=== PATIENT | female | born 1985 | race Two or more races ===

== ENCOUNTER 2021-04-27 11:15 | Inpatient (IN) | payer OTHER ==
[~2021-04-27] VITALS: Ht 152.4 cm; Wt 73.5 kg
[2021-04-27] MEDS ORDERED: SYNTHROID100 MCG PO (13:41)
[2021-04-27] MEDS ORDERED: SYNTHROID88 MCG (13:42)
== END 2021-05-03 10:34 | disposition home or self-care (01) | DRG 737 ==
LOC: O/R 04-29 07:05 → OB/GYN 04-29 07:05
PROVIDERS: Surgery; ADMIT Obstetrics & Gynecology Gynecologic Oncology; ATTEND Obstetrics & Gynecology Gynecologic Oncology
PROC: 0D5W0ZZ Destruction of Peritoneum, Open Approach (ICD-10-PCS; 2021-04-29)
PROC: 0UT20ZZ Resection of Bilateral Ovaries, Open Approach (ICD-10-PCS; 2021-04-29)
PROC: 0UT70ZZ Resection of Bilateral Fallopian Tubes, Open Approach (ICD-10-PCS; 2021-04-29)
PROC: 07BC0ZZ Excision of Pelvis Lymphatic, Open Approach (ICD-10-PCS; 2021-04-29)
PROC: 0DTP0ZZ Resection of Rectum, Open Approach (ICD-10-PCS; 2021-04-29)
PROC: 30233N1 Transfusion of Nonautologous Red Blood Cells into Peripheral Vein, Percutaneous Approach (ICD-10-PCS; 2021-04-29)
PROC: 0UT90ZZ Resection of Uterus, Open Approach (ICD-10-PCS; principal; 2021-04-29 17:45)
PROC: 0DTN0ZZ Resection of Sigmoid Colon, Open Approach (ICD-10-PCS; 2021-04-29 17:45)
DX: C56.2 Malignant neoplasm of left ovary (principal); C18.7 Malignant neoplasm of sigmoid colon; C78.6 Secondary malignant neoplasm of retroperitoneum and peritoneum; R18.0 Malignant ascites; D64.9 Anemia, unspecified; Z20.822 Contact with and (suspected) exposure to COVID-19

== ENCOUNTER 2021-06-24 05:46 | Day surgery (SDC) | payer OTHER ==
[~2021-06-24 05:46] MED LIST: SYNTHROID100 MCG PO; SYNTHROID88 MCG
[2021-06-24] MEDS ORDERED: ULTRACET PO (19:07)
[2021-06-24] MEDS ORDERED: DICLOFENAC SODI75 MG PO (19:07)
== END 2021-06-24 21:30 | disposition home or self-care (01) ==
LOC: CIR.AMB 05:46
PROVIDERS: ATTEND Surgery
DX: C18.7 Malignant neoplasm of sigmoid colon (principal); Z20.822 Contact with and (suspected) exposure to COVID-19
CPT/HCPCS: 36561; C1751

== ENCOUNTER 2024-06-19 06:16 | Inpatient (IN) | payer OTHER ==
[~2024-06-19] VITALS: Ht 152.4 cm; Wt 104.3 kg
[~2024-06-19 06:16] MED LIST changes: +DICLOFENAC SODI75 MG PO; +ULTRACET PO
[2024-06-19] MEDS ORDERED: NORVASC5 MG PO (06:31)
[2024-06-19] MEDS ORDERED: COZAAR25 MG PO (06:31)
[2024-06-19] MEDS ORDERED: MEPERIDINE HCL/PF 50 MG/ML VIAL IM STA (06:56)
[2024-06-19] MEDS ORDERED: RINGERS SOLUTION,LACTATED 1,000 ML IV ONE (07:00)
[2024-06-19] MEDS ORDERED: ONDANSETRON HCL 2 MG/ML VIAL IV PRN (07:30)
[2024-06-19] MEDS ORDERED: MORPHINE SULFATE 4 MG/ML CARTRIDGE IV PRN (07:30)
[2024-06-19 07:38] LABS: HEMATOCRIT 29.7 % (36.0-45.00); HEMOGLOBIN 10.5 g/dL (12.0-15.00); MEAN CELL VOLUME 95.5 fL (80.00-100.00); MEAN CORPUSCULAR HEMOGLOBIN 33.9 pg (27.00-32.0); MEAN CORPUSCULAR HGB CONC 35.4 g/dl (32.0-36.0); PLATELET COUNT 193 K/uL (150-450); RED BLOOD COUNT 3.11 M/uL (4.00-6.00); RED CELL DISTRIBUTION WIDTH 16.8 % (11.5-14.5)
[2024-06-19 07:48] VITALS: BP 137/91; O2SAT 100
[2024-06-19 08:03] LABS: INR 1.05; PARTIAL THROMBOPLASTIN TIME 29.2 SECONDS (22.0-34.0)
[2024-06-19 08:14] LABS: ALBUMIN 3.3 gm/dL (3.4-5.0); BILIRUBIN TOTAL 0.44 mg/dL (0.3-1.2); CALCIUM 9.6 mg/dL (8.5-10.1); CREATININE SERUM 0.71 mg/dL (0.55-1.02); GFR 92.13; GLOBULINA 4.3 G/DL (2.4-3.5); POTASSIUM 3.54 mEq/L (3.5-5.1); TOTAL PROTEIN 7.6 gm/dL (6.4-8.2)
[2024-06-19 08:46] LABS: PH,URINE 6.5 (5.0-8.0); URINE APPEARANCE Clear; URINE BILIRRUBIN Negative (NEGATIVE); URINE BLOOD Negative; URINE COLOR Yellow; URINE GLUCOSE Negative (NEGATIVE); URINE KETONE 15 (NEGATIVE); URINE LEUKOCYTE Negative; URINE NITRATE Negative; URINE PROTEIN Negative (NEGATIVE); URINE UROBILINOGEN 0.2 E.U./dl
[2024-06-19 08:50] LABS: URINE BACTERIA 283.4 uL (0.0-1933); URINE EPITHELIAL CELLS 30.7 uL (0.0-38.8); URINE WBC 29.6 uL (0.0-23.2)
[2024-06-19] MEDS ORDERED: LEVOTHYROXINE SODIUM 100 MCG TABLET PO SCH (09:00)
[2024-06-19] MEDS ORDERED: FAMOTIDINE/PF 20 MG/2 ML VIAL IV SCH (09:00)
[2024-06-19] MEDS ORDERED: ENOXAPARIN SODIUM 40 MG/0.4 ML SYRINGE SUBCUTANEO SCH (09:00)
[2024-06-19 09:36] LABS: URINE CAST 0.45 uL (0.0-1.40)
[2024-06-19 15:18] VITALS: BP 110/95; O2SAT 100
[2024-06-19 23:24] VITALS: BP 136/86; O2SAT 97
[2024-06-20] MEDS ORDERED: levoFLOXacin IN DEXTROSE 5 % 5 MG/ML PIGGYBAG IV SCH (05:45)
[2024-06-20] MEDS ORDERED: METRONIDAZOLE/SODIUM CHLORIDE 500 MG/100 ML PIGGYBACK IV SCH ×2 (05:45→17:00)
[2024-06-20] MEDS ORDERED: LEVOTHYROXINE SODIUM 100 MCG TABLET PO SCH (06:00)
[2024-06-20 08:00] VITALS: BP 138/88; O2SAT 100
[2024-06-20 12:26] VITALS: BP 142/88; O2SAT 98
[2024-06-20] MEDS ORDERED: DEXTROSE 50 % IN WATER 0.5 G/ML DISP.SYRIN IV PRN (15:15)
[2024-06-20] MEDS ORDERED: MORPHINE SULFATE 4 MG/ML CARTRIDGE IV PRN (15:15)
[2024-06-20] MEDS ORDERED: OxyCODONE HCL 5 MG TABLET (ROXICODONE) PO PRN (15:15)
[2024-06-20] MEDS ORDERED: 0.9 % SODIUM CHLORIDE 1,000 ML IV SCH (15:15)
[2024-06-20] MEDS ORDERED: ONDANSETRON HCL 2 MG/ML VIAL IV PRN (15:15)
[2024-06-20] MEDS ORDERED: BUPIVACAINE HCL 30 ML VIAL IJ ONE (15:45)
[2024-06-20] MEDS ORDERED: LIDOCAINE HCL 1%/EPINEPHRINE 20ML VIAL IJ ONE (15:45)
[2024-06-20] MEDS ORDERED: CEFTRIAXONE SODIUM 2,000 MG VIAL IV ONE (15:45)
[2024-06-20] MEDS ORDERED: METRONIDAZOLE/SODIUM CHLORIDE 500 MG/100 ML PIGGYBACK IV ONE (15:45)
[2024-06-20] MEDS ORDERED: HYOSCYAMINE SULFATE 0.125 MG TAB.SUBL SL SCH (17:00)
[2024-06-20] MEDS ORDERED: GABAPENTIN 300 MG CAPSULE PO SCH (17:00)
[2024-06-20] MEDS ORDERED: SUGAMMADEX SODIUM 200 MG/2 ML VIAL IV ONE (17:00)
[2024-06-20] MEDS ORDERED: POLYETHYLENE GLYCOL 3350 17 GM BLIST.PACK PO SCH (17:00)
[2024-06-20 19:29] LABS: HEMATOCRIT 30.8 % (36.0-45.00); HEMOGLOBIN 10.2 g/dL (12.0-15.00); MEAN CELL VOLUME 98.7 fL (80.00-100.00); MEAN CORPUSCULAR HEMOGLOBIN 32.8 pg (27.00-32.0); MEAN CORPUSCULAR HGB CONC 33.3 g/dl (32.0-36.0); PLATELET COUNT 181 K/uL (150-450); RED BLOOD COUNT 3.12 M/uL (4.00-6.00); RED CELL DISTRIBUTION WIDTH 16.6 % (11.5-14.5)
[2024-06-20 19:46] LABS: ALBUMIN 2.9 gm/dL (3.4-5.0); CALCIUM 8.8 mg/dL (8.5-10.1); CREATININE SERUM 0.94 mg/dL (0.55-1.02); GFR 66.64; MAGNESIUM 2.1 mg/dL (1.8-2.4); PHOSPHOROUS 4.5 mg/dL (2.5-4.9); POTASSIUM 3.1 mEq/L (3.5-5.1)
[2024-06-20] MEDS ORDERED: ACETAMINOPHEN 500 MG GEL..CAP PO SCH (20:00)
[2024-06-20 20:30] VITALS: BP 150/87; O2SAT 96
[2024-06-20] MEDS ORDERED: FAMOTIDINE/PF 20 MG/2 ML VIAL IV PUSH SCH (21:00)
[2024-06-21 00:06] VITALS: BP 147/91; O2SAT 100
[2024-06-21 08:00] VITALS: BP 138/81
[2024-06-21 08:46] LABS: HEMATOCRIT 26.6 % (36.0-45.00); MEAN CELL VOLUME 97.9 fL (80.00-100.00); MEAN CORPUSCULAR HGB CONC 33.9 g/dl (32.0-36.0); PLATELET COUNT 150 K/uL (150-450); RED BLOOD COUNT 2.72 M/uL (4.00-6.00); RED CELL DISTRIBUTION WIDTH 16.7 % (11.5-14.5)
[2024-06-21 09:36] LABS: ALBUMIN 2.4 gm/dL (3.4-5.0); CREATININE SERUM 0.98 mg/dL (0.55-1.02); GFR 63.51; MAGNESIUM 1.9 mg/dL (1.8-2.4); PHOSPHOROUS 4.7 mg/dL (2.5-4.9); POTASSIUM 3.38 mEq/L (3.5-5.1)
[2024-06-21 16:34] VITALS: BP 146/89; O2SAT 100
[2024-06-21] MEDS ORDERED: ENOXAPARIN SODIUM 40 MG/0.4 ML SYRINGE SUBCUTANEO SCH (17:00)
[2024-06-22 00:33] VITALS: BP 142/87; O2SAT 99
[2024-06-22] MEDS ORDERED: ENOXAPARIN SODIUM 40 MG/0.4 ML SYRINGE SUBCUTANEO SCH (09:00)
[2024-06-22 09:07] VITALS: BP 146/95; O2SAT 100
[2024-06-22 15:54] VITALS: BP 153/90; O2SAT 98
[2024-06-22] MEDS ORDERED: POTASSIUM CHLORIDE IN WATER 40 MEQ/100 ML PIGGYBAG IV ONE (19:45)
[2024-06-23 01:13] VITALS: BP 143/92; O2SAT 100
[2024-06-23 08:08] LABS: ALBUMIN 1.9 gm/dL (3.4-5.0); CALCIUM 7.8 mg/dL (8.5-10.1); CREATININE SERUM 0.9 mg/dL (0.55-1.02); GFR 70.07; MAGNESIUM 1.7 mg/dL (1.8-2.4); PHOSPHOROUS 2.8 mg/dL (2.5-4.9)
[2024-06-23 09:03] LABS: POTASSIUM 2.54 mEq/L (3.5-5.1)
[2024-06-23 09:15] VITALS: BP 129/79; O2SAT 100
[2024-06-23] MEDS ORDERED: DEXTROSE 5 %-0.45 % SOD CHLORD 1,000 ML IV SCH (10:00)
[2024-06-23] MEDS ORDERED: TAMSULOSIN HCL 0.4 MG CAP PO STA (11:16)
[2024-06-23] MEDS ORDERED: POTASSIUM CHLORIDE 10 MEQ CAPSULE PO SCH (13:00)
[2024-06-24 01:32] VITALS: BP 143/83; O2SAT 100
[2024-06-24 05:46] LABS: ALBUMIN 1.9 gm/dL (3.4-5.0); CALCIUM 7.6 mg/dL (8.5-10.1); CREATININE SERUM 1.3 mg/dL (0.55-1.02); GFR 45.84; PHOSPHOROUS 2.7 mg/dL (2.5-4.9)
[2024-06-24 06:12] LABS: POTASSIUM 2.72 mEq/L (3.5-5.1)
[2024-06-24 06:13] LABS: MAGNESIUM 1.3 mg/dL (1.8-2.4)
[2024-06-24 08:00] VITALS: BP 166/91; O2SAT 96
[2024-06-24] MEDS ORDERED: TAMSULOSIN HCL 0.4 MG CAP PO SCH (09:00)
[2024-06-24] MEDS ORDERED: MAGNESIUM SULFATE IN WATER 4 GM/100 ML PIGGYBACK IV NR (09:18)
[2024-06-24 12:00] VITALS: BP 172/99; O2SAT 100
[2024-06-24] MEDS ORDERED: LOSARTAN POTASSIUM 50 MG TABLET PO STA (13:11)
[2024-06-24 16:00] VITALS: BP 154/88; O2SAT 99
[2024-06-24] MEDS ORDERED: AMLODIPINE BESYLATE 5 MG TABLET PO SCH (17:00)
[2024-06-24] MEDS ORDERED: ENOXAPARIN SODIUM 60 MG/0.6 ML SYRINGE SUBCUTANEO SCH (21:00)
[2024-06-25 00:15] VITALS: BP 135/80; O2SAT 100
[2024-06-25 08:00] VITALS: BP 131/86; O2SAT 97
[2024-06-25] MEDS ORDERED: LOSARTAN POTASSIUM 50 MG TABLET PO SCH (09:00)
[2024-06-25 13:35] LABS: CALCIUM 8.1 mg/dL (8.5-10.1); CREATININE SERUM 1.78 mg/dL (0.55-1.02); GFR 31.9; MAGNESIUM 2.7 mg/dL (1.8-2.4); POTASSIUM 3.4 mEq/L (3.5-5.1)
[2024-06-25 16:33] VITALS: BP 136/86; O2SAT 99
[2024-06-25] MEDS ORDERED: POTASSIUM CHLORIDE IN WATER 100 ML IV ONE (22:15)
[2024-06-26] VITALS: BP 145/85; O2SAT 100
[2024-06-26] MEDS ORDERED: POTASSIUM CHLORIDE IN WATER 40 MEQ/100 ML PIGGYBAG IV ONE (05:13)
[2024-06-26 08:00] VITALS: BP 149/87; O2SAT 100
[2024-06-26 08:25] LABS: CALCIUM 7.9 mg/dL (8.5-10.1); CREATININE SERUM 2.92 mg/dL (0.55-1.02); GFR 18.02; MAGNESIUM 2.5 mg/dL (1.8-2.4); PHOSPHOROUS 3.4 mg/dL (2.5-4.9); POTASSIUM 3.63 mEq/L (3.5-5.1)
[2024-06-26 16:19] VITALS: BP 128/80; O2SAT 99
[2024-06-27 00:36] VITALS: BP 140/78; O2SAT 98
[2024-06-27 08:00] VITALS: BP 136/87; O2SAT 100
[2024-06-27 16:00] VITALS: BP 122/78
[2024-06-27] MEDS ORDERED: CHLORHEXIDINE GLUCONATE 120 ML BOTTLE TOP ONE ×2 (20:02→23:45)
[2024-06-27] MEDS ORDERED: IOVERSOL 320 MG/ML - 50 ML VIAL IV ONE (20:24)
[2024-06-27] MEDS ORDERED: CEFAZOLIN SODIUM 1,000 MG VIAL ONE (20:34)
[2024-06-27] MEDS ORDERED: AMLODIPINE BESYLATE 5 MG TABLET PO SCH (21:00)
[2024-06-27 23:02] VITALS: BP 140/80; O2SAT 100
[2024-06-27] MEDS ORDERED: MORPHINE SULFATE 4 MG/ML CARTRIDGE IV PRN (23:15)
[2024-06-27] MEDS ORDERED: IOVERSOL 320 MG/ML - 100 ML VIAL IV ONE (23:45)
[2024-06-27] MEDS ORDERED: CEFAZOLIN SODIUM 1,000 MG VIAL IV ONE (23:45)
[2024-06-28 00:56] VITALS: BP 139/72; O2SAT 100
[2024-06-28 08:00] VITALS: BP 142/95; O2SAT 100
[2024-06-28] MEDS ORDERED: LOSARTAN POTASSIUM 50 MG TABLET PO SCH (09:00)
[2024-06-28 09:05] LABS: HEMATOCRIT 25.6 % (36.0-45.00); MEAN CELL VOLUME 96.2 fL (80.00-100.00); MEAN CORPUSCULAR HGB CONC 33.4 g/dl (32.0-36.0); PLATELET COUNT 183 K/uL (150-450); RED BLOOD COUNT 2.66 M/uL (4.00-6.00); RED CELL DISTRIBUTION WIDTH 16.1 % (11.5-14.5)
[2024-06-28 09:06] LABS: HEMOGLOBIN 8.5 g/dL (12.0-15.00); MEAN CORPUSCULAR HEMOGLOBIN 31.9 pg (27.00-32.0)
[2024-06-28 09:54] LABS: CALCIUM 8.4 mg/dL (8.5-10.1); GFR 10.4; MAGNESIUM 2.4 mg/dL (1.8-2.4); PHOSPHOROUS 4.7 mg/dL (2.5-4.9); POTASSIUM 4.84 mEq/L (3.5-5.1)
[2024-06-28 10:14] LABS: CREATININE SERUM 4.7 mg/dL (0.55-1.02)
[2024-06-28] MEDS ORDERED: hydrALAZINE HCL 20 MG VIAL IV PRN (11:15)
[2024-06-28 14:00] VITALS: BP 164/85; O2SAT 100
[2024-06-28] MEDS ORDERED: ACETAMINOPHEN 500 MG GEL..CAP PO PRN (14:15)
[2024-06-28] MEDS ORDERED: DILTIAZEM HCL 25 MG/5 ML VIAL IV STA (15:35)
[2024-06-28 16:12] VITALS: BP 91/60; O2SAT 100
[2024-06-28 16:59] VITALS: O2SAT 93
[2024-06-28] MEDS ORDERED: AMIODARONE HCL 50 MG/ML AMPUL IV STA (17:20)
[2024-06-28] MEDS ORDERED: AMIODARONE HCL 450 MG in DEXTROSE 5 % IN WATER 250 ML IV NR (18:00)
[2024-06-28 18:03] LABS: ALBUMIN 1.7 gm/dL (3.4-5.0); BILIRUBIN TOTAL 0.43 mg/dL (0.3-1.2); CALCIUM 7.8 mg/dL (8.5-10.1); GLOBULINA 3.2 G/DL (2.4-3.5); PHOSPHOROUS 3.2 mg/dL (2.5-4.9); POTASSIUM 4.16 mEq/L (3.5-5.1); TOTAL PROTEIN 4.9 gm/dL (6.4-8.2)
[2024-06-28 18:05] LABS: CREATININE SERUM 5.05 mg/dL (0.55-1.02); GFR 9.57
[2024-06-28 19:14] LABS: PH,URINE 5.5 (5.0-8.0); URINE APPEARANCE Cloudy; URINE BILIRRUBIN Negative (NEGATIVE); URINE BLOOD Large; URINE COLOR Red; URINE GLUCOSE Negative (NEGATIVE); URINE KETONE Negative (NEGATIVE); URINE LEUKOCYTE Small; URINE NITRATE Negative; URINE PROTEIN 30 (NEGATIVE); URINE UROBILINOGEN 0.2 E.U./dl
[2024-06-28 19:17] LABS: HEMATOCRIT 23.7 % (36.0-45.00); MEAN CELL VOLUME 97.1 fL (80.00-100.00); MEAN CORPUSCULAR HEMOGLOBIN 32.3 pg (27.00-32.0); MEAN CORPUSCULAR HGB CONC 33.4 g/dl (32.0-36.0); PLATELET COUNT 169 K/uL (150-450); RED BLOOD COUNT 2.44 M/uL (4.00-6.00); RED CELL DISTRIBUTION WIDTH 16.2 % (11.5-14.5)
[2024-06-28 19:18] LABS: URINE EPITHELIAL CELLS 4.4 uL (0.0-38.8); URINE RBC 7598.8 uL (0.0-20.8); URINE WBC 217.5 uL (0.0-23.2)
[2024-06-28 19:19] LABS: HEMOGLOBIN 7.9 g/dL (12.0-15.00)
[2024-06-28 19:32] LABS: URINE BACTERIA > 9821.5 uL (0.0-1933); URINE CAST 1.37 uL (0.0-1.40)
[2024-06-28 20:05] VITALS: O2SAT 90
[2024-06-28] MEDS ORDERED: CEFTRIAXONE SODIUM 1,000 MG in 0.9 % SODIUM CHLORIDE 100 ML IV SCH (21:00)
[2024-06-29] VITALS (17 sets, daily range): BP systolic 55–96; BP diastolic 30–72; O2SAT 89–100
[2024-06-29] MEDS ORDERED: AMIODARONE HCL 450 MG in DEXTROSE 5 % IN WATER 250 ML IV NR
[2024-06-29] MEDS ORDERED: NOREPINEPHRINE BITARTRATE 8 MG in DEXTROSE 5 % IN WATER 250 ML IV SCH (01:15)
[2024-06-29] MEDS ORDERED: NOREPINEPHRINE BITARTRATE 1 MG/ML AMPUL IV ONE ×2 (04:14→09:55)
[2024-06-29 08:19] LABS: ALBUMIN 1.2 gm/dL (3.4-5.0); BILIRUBIN TOTAL 0.19 mg/dL (0.3-1.2); CALCIUM 6.7 mg/dL (8.5-10.1); CREATININE SERUM 3.73 mg/dL (0.55-1.02); GFR 13.58; GLOBULINA 2.7 G/DL (2.4-3.5); MAGNESIUM 1.8 mg/dL (1.8-2.4); TOTAL PROTEIN 3.9 gm/dL (6.4-8.2)
[2024-06-29 08:29] LABS: POTASSIUM 3.52 mEq/L (3.5-5.1)
[2024-06-29] MEDS ORDERED: 0.9 % SODIUM CHLORIDE 1,000 ML IV ONE ×3 (09:15→14:30)
[2024-06-29 10:04] LABS: MEAN CORPUSCULAR HGB CONC 25.5 g/dl (32.0-36.0); RED BLOOD COUNT 1.49 M/uL (4.00-6.00)
[2024-06-29 10:07] LABS: HEMOGLOBIN 4.8 g/dL (12.0-15.00); MEAN CELL VOLUME 126.6 fL (80.00-100.00); MEAN CORPUSCULAR HEMOGLOBIN 32.2 pg (27.00-32.0); PLATELET COUNT 78 K/uL (150-450)
[2024-06-29 10:08] LABS: HEMATOCRIT 18.8 % (36.0-45.00)
[2024-06-29] MEDS ORDERED: PANTOPRAZOLE SODIUM 80 MG in 0.9 % SODIUM CHLORIDE 100 ML IV SCH (10:30)
[2024-06-29 10:42] LABS: ABG PH 7.348 (7.35-7.45); BASE EXCESS -13.2 mmol/l; BICARBONATE 9.7 mmol/l (23-25); SaO2 87.9 %; Tco2 10.2 mmol/l
[2024-06-29] MEDS ORDERED: SOD FERRIC GLUC COMPLX/SUCROSE 125 MG in 0.9 % SODIUM CHLORIDE 100 ML IV SCH (10:46)
[2024-06-29 10:51] LABS: ABG PO2 59.9 mmHg (80-100)
[2024-06-29 10:52] LABS: allen test SATISFACTORY; o2 36 %; puncture site RADIAL RIGHT
[2024-06-29] MEDS ORDERED: METHYLPREDNISOLONE SOD SUCC 40 MG VIAL ONE (10:54)
[2024-06-29] MEDS ORDERED: DIPHENHYDRAMINE HCL 50 MG/ML VIAL 1ML ONE (10:54)
[2024-06-29] MEDS ORDERED: METHYLPREDNISOLONE SOD SUCC 40 MG VIAL IV NR (11:00)
[2024-06-29] MEDS ORDERED: SODIUM CHLORIDE 0.9% IV PRN (11:00)
[2024-06-29] MEDS ORDERED: DIPHENHYDRAMINE HCL IV PRN (11:00)
[2024-06-29] MEDS ORDERED: DIPHENHYDRAMINE HCL 50 MG/ML VIAL 1ML IV NR (11:00)
[2024-06-29] MEDS ORDERED: MEROPENEM 1,000 MG VIAL IV NR (11:15)
[2024-06-29] MEDS ORDERED: SODIUM BICARBONATE 150 MEQ in DEXTROSE 5 % IN WATER 1,000 ML IV SCH (11:45)
[2024-06-29] MEDS ORDERED: PROPOFOL 10,000 MCG/ML VIAL ONE (12:00)
[2024-06-29] MEDS ORDERED: EPINEPHRINE HCL/PF 4 MG in DEXTROSE 5 % IN WATER 250 ML IV SCH (12:15)
[2024-06-29] MEDS ORDERED: PIPERACILLIN/TAZOBACTAM SODIUM 3.375 GM in 0.9 % SODIUM CHLORIDE 100 ML IV SCH (13:00)
[2024-06-29] MEDS ORDERED: ALBUMIN HUMAN IV ONE (13:15)
[2024-06-29] MEDS ORDERED: HYDROCORTISONE SODIUM SUCC/PF 100 MG VIAL ONE (14:16)
[2024-06-29] MEDS ORDERED: 0.9 % SODIUM CHLORIDE 1,000 ML IV SCH (14:30)
[2024-06-29] MEDS ORDERED: PROPOFOL 10 MG/1 ML VIAL 50ML IV ONE (14:30)
[2024-06-29 14:40] LABS: ABG PH 7.279 (7.35-7.45); ABG PO2 135.9 mmHg (80-100); BASE EXCESS -15.6 mmol/l; BICARBONATE 8.5 mmol/l (23-25); SaO2 98.4 %; Tco2 9.1 mmol/l
[2024-06-29] MEDS ORDERED: MIDAZOLAM HCL 50 MG/10 ML VIAL IV SCH (15:00)
[2024-06-29] MEDS ORDERED: MIDAZOLAM HCL 100 MG in 0.9 % SODIUM CHLORIDE 100 ML IV SCH ×2 (15:15→15:30)
[2024-06-29] MEDS ORDERED: SODIUM BICARBONATE 100 MEQ in SODIUM CHLORIDE 0.45 % 1,000 ML IV SCH (15:30)
[2024-06-29] MEDS ORDERED: SODIUM BICARBONATE 50MEQ/50ML VIAL IV NR (15:30)
[2024-06-29 15:47] LABS: ABG pCO2 18.6 mmHg (35-45)
[2024-06-29 15:49] LABS: allen test SATISFACTORY; o2 100 %; puncture site RADIAL LEFT
[2024-06-29] MEDS ORDERED: HYDROCORTISONE SODIUM SUCC/PF 100 MG VIAL IV SCH (17:00)
[2024-06-29] MEDS ORDERED: CHLORHEXIDINE GLUCONATE 15ML BRUSH KIT MM SCH (17:00)
[2024-06-29] MEDS ORDERED: CARBOXYMETHYLCELLULOSE SODIUM 1 EACH DROPERETTE OP SCH (17:00)
[2024-06-29] MEDS ORDERED: METHYLPREDNISOLONE SOD SUCC 40 MG VIAL IV PRN (17:15)
[2024-06-29] MEDS ORDERED: DIPHENHYDRAMINE HCL 50 MG/ML VIAL 1ML IV PRN (17:15)
[2024-06-29] MEDS ORDERED: ALBUMIN HUMAN 100 ML VIAL IV SCH (18:00)
[2024-06-29] MEDS ORDERED: MEROPENEM 500 MG/VIAL VIAL IV SCH (21:00)
[2024-06-30] VITALS (24 sets, daily range): BP systolic 70–116; BP diastolic 45–80; O2SAT 81–100
[2024-06-30] MEDS ORDERED: DIPHENHYDRAMINE HCL 50 MG/ML VIAL 1ML IV SCH (02:00)
[2024-06-30] MEDS ORDERED: METHYLPREDNISOLONE SOD SUCC 40 MG VIAL IV SCH (02:00)
[2024-06-30] MEDS ORDERED: SODIUM CL ONE (04:02)
[2024-06-30 07:28] LABS: ABG PH 7.376 (7.35-7.45); ABG pCO2 24.7 mmHg (35-45); BICARBONATE 14.1 mmol/l (23-25); SaO2 93.1 %; Tco2 14.9 mmol/l
[2024-06-30 07:45] LABS: INR 1.66
[2024-06-30 07:49] LABS: PROTHROMBIN TIME 17.4 SECONDS (9.0-11.5)
[2024-06-30 07:58] LABS: HEMATOCRIT 35.8 % (36.0-45.00); HEMOGLOBIN 12.3 g/dL (12.0-15.00); MEAN CELL VOLUME 90.1 fL (80.00-100.00); MEAN CORPUSCULAR HEMOGLOBIN 30.8 pg (27.00-32.0); MEAN CORPUSCULAR HGB CONC 34.2 g/dl (32.0-36.0); RED BLOOD COUNT 3.98 M/uL (4.00-6.00); RED CELL DISTRIBUTION WIDTH 17.2 % (11.5-14.5)
[2024-06-30 07:59] LABS: PLATELET COUNT 39 K/uL (150-450)
[2024-06-30 08:04] LABS: allen test SATISFACTORY; o2 100 %; puncture site RADIAL LEFT
[2024-06-30 08:35] LABS: ALBUMIN 2.8 gm/dL (3.4-5.0); CALCIUM 6.8 mg/dL (8.5-10.1); CREATININE SERUM 3.28 mg/dL (0.55-1.02); GFR 15.76; PHOSPHOROUS 4.7 mg/dL (2.5-4.9); POTASSIUM 4.2 mEq/L (3.5-5.1)
[2024-06-30 08:41] LABS: ALBUMIN 2.7 gm/dL (3.4-5.0); BILIRUBIN TOTAL 1.83 mg/dL (0.3-1.2); CALCIUM 6.6 mg/dL (8.5-10.1); CREATININE SERUM 3.3 mg/dL (0.55-1.02); GFR 15.64; GLOBULINA 2.5 G/DL (2.4-3.5); MAGNESIUM 1.9 mg/dL (1.8-2.4); PHOSPHOROUS 4.6 mg/dL (2.5-4.9); POTASSIUM 4.19 mEq/L (3.5-5.1); TOTAL PROTEIN 5.2 gm/dL (6.4-8.2)
[2024-06-30 10:57] LABS: PLATELET ESTIMATE DECREASED (NORMAL)
[2024-06-30 14:22] LABS: ABG PH 7.271 (7.35-7.45)
[2024-06-30 14:23] LABS: ABG PO2 60.7 mmHg (80-100); ABG pCO2 39.6 mmHg (35-45); BASE EXCESS -8.5 mmol/l; BICARBONATE 17.8 mmol/l (23-25); allen test SATISFACTORY; o2 100 %; puncture site RADIAL LEFT
[2024-06-30] MEDS ORDERED: FUROsemide 40 MG/4 ML VIAL ONE (14:29)
[2024-06-30] MEDS ORDERED: FUROsemide 40 MG/4 ML VIAL IV STA (14:33)
[2024-06-30] MEDS ORDERED: FUROsemide 40 MG/4 ML VIAL IV SCH (21:00)
[2024-07-01] VITALS (17 sets, daily range): BP systolic 82–113; BP diastolic 52–89; O2SAT 96–100
[2024-07-01 08:04] LABS: HEMATOCRIT 33.8 % (36.0-45.00); HEMOGLOBIN 11.5 g/dL (12.0-15.00); MEAN CELL VOLUME 89.9 fL (80.00-100.00); MEAN CORPUSCULAR HEMOGLOBIN 30.5 pg (27.00-32.0); MEAN CORPUSCULAR HGB CONC 33.9 g/dl (32.0-36.0); RED BLOOD COUNT 3.76 M/uL (4.00-6.00); RED CELL DISTRIBUTION WIDTH 17.4 % (11.5-14.5)
[2024-07-01] MEDS ORDERED: FUROsemide 40 MG/4 ML VIAL ONE (08:15)
[2024-07-01 08:53] LABS: PLATELET COUNT 25 K/uL (150-450)
[2024-07-01] MEDS ORDERED: HYDROCORTISONE SODIUM SUCC/PF 50 MG/ML ML IV SCH ×2 (09:26→14:00)
[2024-07-01] MEDS ORDERED: PHYTONADIONE 10 MG/ML AMPUL IV SCH (09:36)
[2024-07-01] MEDS ORDERED: SODIUM BICARBONATE 200 MEQ in DEXTROSE 5 % IN WATER 1,000 ML IV SCH (09:45)
[2024-07-01] MEDS ORDERED: 0.9 % SODIUM CHLORIDE 1,000 ML IV SCH (09:45)
[2024-07-01 09:46] LABS: ABG PH 7.417 (7.35-7.45); ABG PO2 109.5 mmHg (80-100); ABG pCO2 30.4 mmHg (35-45); BASE EXCESS -4.1 mmol/l; BICARBONATE 19.2 mmol/l (23-25); SaO2 98.3 %; Tco2 20.1 mmol/l
[2024-07-01 09:47] LABS: allen test SATISFACTORY; o2 100 %; puncture site RADIAL RIGHT
[2024-07-01] MEDS ORDERED: LEVOTHYROXINE SODIUM 100 MCG/VIAL VIAL IV SCH (10:30)
[2024-07-01] MEDS ORDERED: FUROsemide 20 MG/2 ML VIAL IV SCH (13:00)
[2024-07-01 14:29] LABS: CHOL HDL RATIO 8.6 (0-5.0); CREATININE SERUM 2.58 mg/dL (0.55-1.02); GFR 20.78
[2024-07-01 14:31] LABS: CALCIUM 6.8 mg/dL (8.5-10.1)
[2024-07-01 14:32] LABS: POTASSIUM 2.96 mEq/L (3.5-5.1)
[2024-07-01 15:36] LABS: CALCIUM 6.6 mg/dL (8.5-10.1); CREATININE SERUM 2.51 mg/dL (0.55-1.02); GFR 21.45
[2024-07-01 15:51] LABS: POTASSIUM 2.84 mEq/L (3.5-5.1)
[2024-07-01] MEDS ORDERED: AA 4.25%/CALCIUM/LYTES/DEX 10% 1,000 ML CENTRAL SCH (17:00)
[2024-07-01] MEDS ORDERED: POTASSIUM CHLORIDE-0.45% NACL 1,000 ML IV SCH (21:15)
[2024-07-01] MEDS ORDERED: POTASSIUM CHLORIDE-0.45% NACL 20 MEQ/1,000 ML PIGGYBAG IV ONE (21:31)
[2024-07-02] VITALS (14 sets, daily range): BP systolic 97–116; BP diastolic 75–89; O2SAT 95–100
[2024-07-02 08:57] LABS: ABG PH 7.471 (7.35-7.45); ABG PO2 116.5 mmHg (80-100); ABG pCO2 37.5 mmHg (35-45)
[2024-07-02 08:58] LABS: BASE EXCESS 3.2 mmol/l; BICARBONATE 26.7 mmol/l (23-25); SaO2 98.8 %; Tco2 27.9 mmol/l; o2 100 %
[2024-07-02 08:59] LABS: allen test SATISFACTORY; puncture site RADIAL RIGHT
[2024-07-02] MEDS ORDERED: POTASSIUM CHLORIDE IN WATER 40 MEQ/100 ML PIGGYBAG IV SCH ×2 (09:00→17:00)
[2024-07-02 10:20] LABS: HEMATOCRIT 35.6 % (36.0-45.00); HEMOGLOBIN 12.1 g/dL (12.0-15.00); MEAN CELL VOLUME 91.3 fL (80.00-100.00); MEAN CORPUSCULAR HEMOGLOBIN 31.1 pg (27.00-32.0); MEAN CORPUSCULAR HGB CONC 34.1 g/dl (32.0-36.0); RED CELL DISTRIBUTION WIDTH 17.1 % (11.5-14.5)
[2024-07-02 10:21] LABS: PLATELET COUNT 53 K/uL (150-450)
[2024-07-02 11:08] LABS: INR 1.1; PARTIAL THROMBOPLASTIN TIME 31.4 SECONDS (22.0-34.0)
[2024-07-02 11:09] LABS: PROTHROMBIN TIME 11.9 SECONDS (9.0-11.5)
[2024-07-02 11:42] LABS: BILIRUBIN TOTAL 0.9 mg/dL (0.3-1.2); CALCIUM 7.3 mg/dL (8.5-10.1); CREATININE SERUM 1.91 mg/dL (0.55-1.02); GFR 29.4; GLOBULINA 2.9 G/DL (2.4-3.5); MAGNESIUM 1.6 mg/dL (1.8-2.4); PHOSPHOROUS 4.1 mg/dL (2.5-4.9); TOTAL PROTEIN 4.9 gm/dL (6.4-8.2)
[2024-07-02 11:51] LABS: C-REACTIVE PROTEIN 21.5 MG/DL (0.00-0.29)
[2024-07-02 11:52] LABS: POTASSIUM 2.64 mEq/L (3.5-5.1)
[2024-07-02] MEDS ORDERED: MEROPENEM 500 MG/VIAL VIAL IV STA (12:11)
[2024-07-02] MEDS ORDERED: POTASSIUM CHLORIDE IN WATER 40 MEQ/100 ML PIGGYBAG IV ONE (14:13)
[2024-07-02] MEDS ORDERED: MAGNESIUM SULFATE IN WATER 4 GM/100 ML PIGGYBACK IV NR (15:30)
[2024-07-02] MEDS ORDERED: AA 4.25%/CALCIUM/LYTES/DEX 10% 1,000 ML CENTRAL SCH (17:00)
[2024-07-02] MEDS ORDERED: MEROPENEM 1,000 MG in 0.9 % SODIUM CHLORIDE 100 ML IV SCH (21:00)
[2024-07-03] VITALS (12 sets, daily range): BP systolic 98–137; BP diastolic 64–104; O2SAT 96–100
[2024-07-03 02:41] LABS: HEMATOCRIT 33.7 % (36.0-45.00); HEMOGLOBIN 11.3 g/dL (12.0-15.00); MEAN CELL VOLUME 92.1 fL (80.00-100.00); MEAN CORPUSCULAR HEMOGLOBIN 30.9 pg (27.00-32.0); MEAN CORPUSCULAR HGB CONC 33.6 g/dl (32.0-36.0); RED BLOOD COUNT 3.66 M/uL (4.00-6.00); RED CELL DISTRIBUTION WIDTH 17.2 % (11.5-14.5)
[2024-07-03 03:00] LABS: PLATELET COUNT 50 K/uL (150-450)
[2024-07-03] MEDS ORDERED: ALBUMIN HUMAN IV ONE (07:00)
[2024-07-03] MEDS ORDERED: SODIUM CHLORIDE 0.45 % 1,000 ML IV SCH (08:00)
[2024-07-03 08:05] LABS: ABG PH 7.484 (7.35-7.45); ABG PO2 62.7 mmHg (80-100); ABG pCO2 37.2 mmHg (35-45); BASE EXCESS 3.9 mmol/l; BICARBONATE 27.3 mmol/l (23-25); SaO2 93.7 %; Tco2 28.5 mmol/l
[2024-07-03 08:11] LABS: allen test SATISFACTORY; o2 50 %; puncture site RADIAL RIGHT
[2024-07-03] MEDS ORDERED: FUROsemide 20 MG/2 ML VIAL IV SCH (09:00)
[2024-07-03] MEDS ORDERED: ALBUMIN HUMAN 100 ML VIAL IV SCH (09:00)
[2024-07-03] MEDS ORDERED: HYDROCORTISONE SODIUM SUCC/PF 50 MG/ML ML IV SCH (09:00)
[2024-07-03 13:37] LABS: ALBUMIN 1.9 gm/dL (3.4-5.0); CALCIUM 7.8 mg/dL (8.5-10.1); CREATININE SERUM 1.24 mg/dL (0.55-1.02); GFR 48.41; MAGNESIUM 2.3 mg/dL (1.8-2.4); PHOSPHOROUS 3.6 mg/dL (2.5-4.9); POTASSIUM 4.64 mEq/L (3.5-5.1)
[2024-07-03] MEDS ORDERED: MIDAZOLAM HCL 100 MG in 0.9 % SODIUM CHLORIDE 100 ML IV SCH (14:15)
[2024-07-03] MEDS ORDERED: MEROPENEM 500 MG in 0.9 % SODIUM CHLORIDE 100 ML IV SCH (18:00)
[2024-07-03] MEDS ORDERED: DEXTROSE 5 % IN WATER 1,000 ML IV SCH (18:30)
[2024-07-04] VITALS (18 sets, daily range): BP systolic 124–141; BP diastolic 85–101; O2SAT 96–100
[2024-07-04] MEDS ORDERED: MEROPENEM 500 MG/VIAL VIAL IV ONE (00:47)
[2024-07-04 07:03] LABS: ALBUMIN 2.1 gm/dL (3.4-5.0); CREATININE SERUM 0.97 mg/dL (0.55-1.02); GFR 64.27; PHOSPHOROUS 3.9 mg/dL (2.5-4.9); POTASSIUM 3.88 mEq/L (3.5-5.1)
[2024-07-04 08:09] LABS: ABG PH 7.503 (7.35-7.45); ABG PO2 68.2 mmHg (80-100); ABG pCO2 37.5 mmHg (35-45); BASE EXCESS 5.6 mmol/l; BICARBONATE 28.8 mmol/l (23-25); SaO2 95.3 %
[2024-07-04] MEDS ORDERED: SOD FERRIC GLUC COMPLX/SUCROSE 62.5 MG/5 ML AMPUL IV ONE (08:29)
[2024-07-04 08:35] LABS: HEMATOCRIT 32.2 % (36.0-45.00); HEMOGLOBIN 10.9 g/dL (12.0-15.00); MEAN CELL VOLUME 91.5 fL (80.00-100.00); MEAN CORPUSCULAR HGB CONC 33.9 g/dl (32.0-36.0); RED BLOOD COUNT 3.51 M/uL (4.00-6.00); RED CELL DISTRIBUTION WIDTH 16.8 % (11.5-14.5)
[2024-07-04 08:36] LABS: PLATELET COUNT 32 K/uL (150-450)
[2024-07-04 08:39] LABS: o2 50 %
[2024-07-04 08:40] LABS: allen test SATISFACTORY; puncture site RADIAL RIGHT
[2024-07-04 08:57] LABS: INR 1.08; PARTIAL THROMBOPLASTIN TIME 30.7 SECONDS (22.0-34.0); PROTHROMBIN TIME 11.7 SECONDS (9.0-11.5)
[2024-07-04] MEDS ORDERED: NITROGLYCERIN IN 5 % DEXTROSE 250 ML IV SCH (11:15)
[2024-07-04] MEDS ORDERED: VANCOMYCIN HCL 1,250 MG in 0.9 % SODIUM CHLORIDE 250 ML IV SCH (11:19)
[2024-07-04] MEDS ORDERED: VANCOMYCIN HCL 5 MG/ML REDILUIDO IV SCH (17:00)
[2024-07-04 17:48] LABS: HEMATOCRIT 29.8 % (36.0-45.00); MEAN CELL VOLUME 92.9 fL (80.00-100.00); MEAN CORPUSCULAR HEMOGLOBIN 31.1 pg (27.00-32.0); MEAN CORPUSCULAR HGB CONC 33.5 g/dl (32.0-36.0); RED CELL DISTRIBUTION WIDTH 16.9 % (11.5-14.5)
[2024-07-04 18:11] LABS: PLATELET COUNT 49 K/uL (150-450)
[2024-07-04] MEDS ORDERED: DEXTROSE 5 % IN WATER 1,000 ML IV SCH (18:30)
[2024-07-04] MEDS ORDERED: AMLODIPINE BESYLATE 5 MG TABLET PO SCH (20:26)
[2024-07-04] MEDS ORDERED: FUROsemide 20 MG/2 ML VIAL ONE (21:26)
[2024-07-04] MEDS ORDERED: TRIAMCINOLONE ACETONIDE 5 GM TUBE TOP ONE (22:30)
[2024-07-05] VITALS (22 sets, daily range): BP systolic 81–160; BP diastolic 50–98; O2SAT 93–100
[2024-07-05] MEDS ORDERED: FUROsemide 20 MG/2 ML VIAL IV SCH (05:00)
[2024-07-05] MEDS ORDERED: MEROPENEM 500 MG/VIAL VIAL IV ONE (05:00)
[2024-07-05 06:27] LABS: HEMATOCRIT 28.2 % (36.0-45.00); HEMOGLOBIN 9.7 g/dL (12.0-15.00); MEAN CELL VOLUME 91.1 fL (80.00-100.00); MEAN CORPUSCULAR HEMOGLOBIN 31.4 pg (27.00-32.0); MEAN CORPUSCULAR HGB CONC 34.4 g/dl (32.0-36.0); RED CELL DISTRIBUTION WIDTH 16.4 % (11.5-14.5)
[2024-07-05 06:32] LABS: PLATELET COUNT 33 K/uL (150-450)
[2024-07-05 07:56] LABS: ABG PH 7.509 (7.35-7.45); BASE EXCESS 7.5 mmol/l; BICARBONATE 31.1 mmol/l (23-25); SaO2 88.8 %; Tco2 32.3 mmol/l
[2024-07-05 08:39] LABS: ABG PO2 48.7 mmHg (80-100); allen test SATISFACTORY; o2 50 %; puncture site RADIAL RIGHT
[2024-07-05] MEDS ORDERED: ENALAPRILAT DIHYDRATE 1.25 MG/ML VIAL IV PRN (08:45)
[2024-07-05] MEDS ORDERED: ENALAPRILAT DIHYDRATE 1.25 MG/ML VIAL IV SCH (09:00)
[2024-07-05] MEDS ORDERED: hydrALAZINE HCL 25 MG TABLET PO SCH ×2 (09:00)
[2024-07-05 11:15] LABS: ALBUMIN 2.5 gm/dL (3.4-5.0); BILIRUBIN TOTAL 1.26 mg/dL (0.3-1.2); CREATININE SERUM 0.79 mg/dL (0.55-1.02); GFR 81.45; GLOBULINA 2.6 G/DL (2.4-3.5); POTASSIUM 3.53 mEq/L (3.5-5.1); TOTAL PROTEIN 5.1 gm/dL (6.4-8.2)
[2024-07-05 11:18] LABS: D DIMER 27.72 MG/L; INR 1.17; PARTIAL THROMBOPLASTIN TIME 32.8 SECONDS (22.0-34.0); PROTHROMBIN TIME 12.6 SECONDS (9.0-11.5)
[2024-07-05] MEDS ORDERED: AMLODIPINE BESYLATE 10 MG TABLET PO SCH (17:00)
[2024-07-05] MEDS ORDERED: AMLODIPINE BESYLATE 5 MG TABLET PO SCH (17:00)
[2024-07-05] MEDS ORDERED: FentaNYL CITRATE/PF 1,000 MCG in 0.9 % SODIUM CHLORIDE 100 ML IV SCH (17:45)
[2024-07-05] MEDS ORDERED: 0.9 % SODIUM CHLORIDE 500 ML IV ONE (21:30)
[2024-07-05] MEDS ORDERED: NOREPINEPHRINE BITARTRATE 8 MG in DEXTROSE 5 % IN WATER 250 ML IV SCH (21:45)
[2024-07-05 22:06] LABS: MEAN CELL VOLUME 92.3 fL (80.00-100.00); MEAN CORPUSCULAR HGB CONC 33.3 g/dl (32.0-36.0); RED BLOOD COUNT 2.82 M/uL (4.00-6.00); RED CELL DISTRIBUTION WIDTH 16.3 % (11.5-14.5)
[2024-07-05] MEDS ORDERED: NOREPINEPHRINE BITARTRATE 1 MG/ML AMPUL IV ONE (22:20)
[2024-07-05 22:24] LABS: HEMOGLOBIN 8.7 g/dL (12.0-15.00); MEAN CORPUSCULAR HEMOGLOBIN 30.8 pg (27.00-32.0)
[2024-07-05 22:26] LABS: PLATELET COUNT 17 K/uL (150-450)
[2024-07-06] VITALS (17 sets, daily range): BP systolic 99–142; BP diastolic 74–101; O2SAT 96–100
[2024-07-06] MEDS ORDERED: PANTOPRAZOLE SODIUM 40 MG/VIAL VIAL ONE (01:04)
[2024-07-06 09:26] LABS: ABG PH 7.478 (7.35-7.45); ABG PO2 69.4 mmHg (80-100); ABG pCO2 40.7 mmHg (35-45); BASE EXCESS 5.5 mmol/l; BICARBONATE 29.5 mmol/l (23-25); SaO2 95.2 %; Tco2 30.8 mmol/l
[2024-07-06] MEDS ORDERED: METHYLPREDNISOLONE SOD SUCC 40 MG VIAL IV STA (09:33)
[2024-07-06] MEDS ORDERED: DIPHENHYDRAMINE HCL 50 MG/ML VIAL 1ML IV STA (09:34)
[2024-07-06] MEDS ORDERED: DIPHENHYDRAMINE HCL 50 MG/ML VIAL 1ML IV SCH (09:45)
[2024-07-06] MEDS ORDERED: METHYLPREDNISOLONE SOD SUCC 40 MG VIAL IV SCH (09:45)
[2024-07-06 12:49] LABS: allen test SATISFACTORY; o2 100 %; puncture site RADIAL RIGHT
[2024-07-06] MEDS ORDERED: FUROsemide 20 MG/2 ML VIAL IV SCH (17:00)
[2024-07-06] MEDS ORDERED: ALBUMIN HUMAN 100 ML VIAL IV SCH (17:00)
[2024-07-06] MEDS ORDERED: MIDAZOLAM HCL 100 MG in 0.9 % SODIUM CHLORIDE 100 ML IV SCH (18:15)
[2024-07-06 19:27] LABS: HEMATOCRIT 27.6 % (36.0-45.00); HEMOGLOBIN 9.5 g/dL (12.0-15.00); MEAN CELL VOLUME 91.2 fL (80.00-100.00); MEAN CORPUSCULAR HEMOGLOBIN 31.3 pg (27.00-32.0); MEAN CORPUSCULAR HGB CONC 34.3 g/dl (32.0-36.0); RED BLOOD COUNT 3.03 M/uL (4.00-6.00); RED CELL DISTRIBUTION WIDTH 16.6 % (11.5-14.5)
[2024-07-06 19:33] LABS: PLATELET COUNT 24 K/uL (150-450)
[2024-07-06 19:53] LABS: INR 1.19; PARTIAL THROMBOPLASTIN TIME 33.9 SECONDS (22.0-34.0); PROTHROMBIN TIME 12.8 SECONDS (9.0-11.5)
[2024-07-06 20:33] LABS: ALBUMIN 2.8 gm/dL (3.4-5.0); BILIRUBIN TOTAL 1.18 mg/dL (0.3-1.2); CALCIUM 8.4 mg/dL (8.5-10.1); CREATININE SERUM 1.17 mg/dL (0.55-1.02); GFR 51.77; GLOBULINA 3.1 G/DL (2.4-3.5); POTASSIUM 4.27 mEq/L (3.5-5.1); TOTAL PROTEIN 5.9 gm/dL (6.4-8.2)
[2024-07-07] VITALS (15 sets, daily range): BP systolic 109–164; BP diastolic 77–97; O2SAT 93–100
[2024-07-07 10:05] LABS: ABG PH 7.424 (7.35-7.45); ABG PO2 60.7 mmHg (80-100); ABG pCO2 46.1 mmHg (35-45); BASE EXCESS 4.3 mmol/l; SaO2 91.8 %
[2024-07-07 10:06] LABS: BICARBONATE 29.5 mmol/l (23-25); Tco2 30.9 mmol/l
[2024-07-07 10:07] LABS: allen test SATISFACTORY; o2 100 %; puncture site RADIAL RIGHT
[2024-07-07 10:12] LABS: ALBUMIN 2.9 gm/dL (3.4-5.0); BILIRUBIN TOTAL 1.06 mg/dL (0.3-1.2); CALCIUM 8.7 mg/dL (8.5-10.1); CREATININE SERUM 0.98 mg/dL (0.55-1.02); GFR 63.51; GLOBULINA 2.9 G/DL (2.4-3.5); POTASSIUM 3.85 mEq/L (3.5-5.1); TOTAL PROTEIN 5.8 gm/dL (6.4-8.2)
[2024-07-07 10:15] LABS: HEMATOCRIT 30.6 % (36.0-45.00); HEMOGLOBIN 10.5 g/dL (12.0-15.00); MEAN CELL VOLUME 89.2 fL (80.00-100.00); MEAN CORPUSCULAR HEMOGLOBIN 30.5 pg (27.00-32.0); MEAN CORPUSCULAR HGB CONC 34.1 g/dl (32.0-36.0); RED BLOOD COUNT 3.43 M/uL (4.00-6.00); RED CELL DISTRIBUTION WIDTH 17.7 % (11.5-14.5)
[2024-07-07 10:17] LABS: PLATELET COUNT 43 K/uL (150-450)
[2024-07-07] MEDS ORDERED: SODIUM CHLORIDE 0.45 % 1,000 ML IV SCH (12:30)
[2024-07-07] MEDS ORDERED: SODIUM CHLORIDE 0.9% IV SCH (12:30)
[2024-07-07] MEDS ORDERED: FUROSEMIDE IV SCH (12:30)
[2024-07-07] MEDS ORDERED: FUROsemide 20 MG/2 ML VIAL ONE (12:31)
[2024-07-07] MEDS ORDERED: AMINO ACIDS 4.25%/DEXTROSE 10% 1,000 ML CENTRAL SCH (17:00)
[2024-07-07 21:31] LABS: HEMATOCRIT 33.2 % (36.0-45.00); HEMOGLOBIN 11.4 g/dL (12.0-15.00); MEAN CORPUSCULAR HEMOGLOBIN 30.1 pg (27.00-32.0); MEAN CORPUSCULAR HGB CONC 34.3 g/dl (32.0-36.0); PLATELET COUNT 56 K/uL (150-450); RED BLOOD COUNT 3.77 M/uL (4.00-6.00); RED CELL DISTRIBUTION WIDTH 18.1 % (11.5-14.5)
[2024-07-07 21:48] LABS: INR 1.32; PROTHROMBIN TIME 14.1 SECONDS (9.0-11.5)
[2024-07-08] VITALS (18 sets, daily range): BP systolic 81–150; BP diastolic 66–97; O2SAT 95–100
[2024-07-08] MEDS ORDERED: FUROsemide 20 MG/2 ML VIAL ONE (00:11)
[2024-07-08] MEDS ORDERED: SODIUM CL 0.9% 100 ML IV.SOLN IV ONE (05:06)
[2024-07-08 06:43] LABS: HEMATOCRIT 32.5 % (36.0-45.00); HEMOGLOBIN 11.3 g/dL (12.0-15.00); MEAN CELL VOLUME 87.7 fL (80.00-100.00); MEAN CORPUSCULAR HEMOGLOBIN 30.4 pg (27.00-32.0); MEAN CORPUSCULAR HGB CONC 34.7 g/dl (32.0-36.0); RED CELL DISTRIBUTION WIDTH 17.5 % (11.5-14.5)
[2024-07-08 06:48] LABS: PLATELET COUNT 44 K/uL (150-450)
[2024-07-08 07:23] LABS: INR 1.21; PARTIAL THROMBOPLASTIN TIME 29.9 SECONDS (22.0-34.0)
[2024-07-08 07:25] LABS: CREATININE SERUM 1.03 mg/dL (0.55-1.02); GFR 59.97; POTASSIUM 3.63 mEq/L (3.5-5.1)
[2024-07-08 07:26] LABS: ALBUMIN 3.6 gm/dL (3.4-5.0); BILIRUBIN TOTAL 1.48 mg/dL (0.3-1.2); GLOBULINA 2.8 G/DL (2.4-3.5); TOTAL PROTEIN 6.4 gm/dL (6.4-8.2)
[2024-07-08 07:54] LABS: BILIRUBIN,CONJUGATED 0.48 mg/dL (0.0-0.2); CHOL HDL RATIO 6.8 (0-5.0); MAGNESIUM 1.8 mg/dL (1.8-2.4)
[2024-07-08] MEDS ORDERED: NITROGLYCERIN IN 5 % DEXTROSE 50 MG/250 ML KIT IV STA (08:53)
[2024-07-08] MEDS ORDERED: NITROGLYCERIN IN 5 % DEXTROSE 50 MG/250 ML BOTTLE IV ONE (08:55)
[2024-07-08 10:18] LABS: ABG PH 7.438 (7.35-7.45)
[2024-07-08 10:19] LABS: BASE EXCESS 4.2 mmol/l; BICARBONATE 29.1 mmol/l (23-25); SaO2 98.3 %; Tco2 30.4 mmol/l
[2024-07-08 10:20] LABS: allen test SATISFACTORY; o2 100 %; puncture site RADIAL RIGHT
[2024-07-08] MEDS ORDERED: FUROsemide 20 MG/2 ML VIAL IV NR (10:30)
[2024-07-08] MEDS ORDERED: FentaNYL CITRATE/PF 1,000 MCG in 0.9 % SODIUM CHLORIDE 100 ML IV SCH (12:30)
[2024-07-08 12:42] LABS: URINE APPEARANCE Clear; URINE BILIRRUBIN Negative (NEGATIVE); URINE BLOOD Large; URINE COLOR Yellow; URINE GLUCOSE Negative (NEGATIVE); URINE KETONE Negative (NEGATIVE); URINE LEUKOCYTE Trace; URINE NITRATE Negative; URINE PROTEIN 30 (NEGATIVE); URINE UROBILINOGEN 0.2 E.U./dl
[2024-07-08 12:43] LABS: URINE BACTERIA 55.4 uL (0.0-1933); URINE CAST 3.05 uL (0.0-1.40); URINE EPITHELIAL CELLS 11.7 uL (0.0-38.8); URINE RBC 1622.4 uL (0.0-20.8); URINE WBC 70.8 uL (0.0-23.2)
[2024-07-08] MEDS ORDERED: NITROGLYCERIN IN 5 % DEXTROSE 250 ML IV SCH (16:00)
[2024-07-08] MEDS ORDERED: BUMETANIDE 2.5 MG/10 ML VIAL IV SCH (21:00)
[2024-07-09] VITALS (21 sets, daily range): BP systolic 121–1141; BP diastolic 83–100; O2SAT 99–100
[2024-07-09 06:53] LABS: HEMATOCRIT 32.6 % (36.0-45.00); HEMOGLOBIN 11.2 g/dL (12.0-15.00); MEAN CELL VOLUME 89.4 fL (80.00-100.00); MEAN CORPUSCULAR HEMOGLOBIN 30.6 pg (27.00-32.0); MEAN CORPUSCULAR HGB CONC 34.2 g/dl (32.0-36.0); RED BLOOD COUNT 3.65 M/uL (4.00-6.00)
[2024-07-09 07:02] LABS: PLATELET COUNT 30 K/uL (150-450)
[2024-07-09 07:35] LABS: BILIRUBIN TOTAL 1.36 mg/dL (0.3-1.2); CALCIUM 8.6 mg/dL (8.5-10.1); CREATININE SERUM 0.96 mg/dL (0.55-1.02); GFR 65.04; GLOBULINA 2.7 G/DL (2.4-3.5); POTASSIUM 3.22 mEq/L (3.5-5.1); TOTAL PROTEIN 5.7 gm/dL (6.4-8.2)
[2024-07-09 08:24] LABS: UREA CLEARANCE 13.1 ML/MIN
[2024-07-09 08:42] LABS: ABG PH 7.415 (7.35-7.45); ABG PO2 99.9 mmHg (80-100); ABG pCO2 52.1 mmHg (35-45); BASE EXCESS 6.5 mmol/l; BICARBONATE 32.6 mmol/l (23-25); SaO2 97.9 %; Tco2 34.2 mmol/l
[2024-07-09 09:46] LABS: allen test SATISFACTORY; o2 100 %; puncture site RADIAL RIGHT
[2024-07-09] MEDS ORDERED: COSYNTROPIN 0.25 MG VIAL IV ONE (22:00)
[2024-07-10] VITALS (16 sets, daily range): BP systolic 97–155; BP diastolic 60–100; O2SAT 98–100
[2024-07-10 08:55] LABS: ABG PH 7.429 (7.35-7.45); ABG PO2 181.3 mmHg (80-100); ABG pCO2 55.8 mmHg (35-45); BASE EXCESS 9.5 mmol/l; BICARBONATE 36.1 mmol/l (23-25); SaO2 99.6 %; Tco2 37.8 mmol/l
[2024-07-10 09:10] LABS: o2 100 %
[2024-07-10 09:11] LABS: allen test NO SATISFACTORY; puncture site RADIAL RIGHT
[2024-07-10] MEDS ORDERED: COSYNTROPIN 0.25 MG VIAL IV NR (10:00)
[2024-07-10 11:08] LABS: ACTH 4.3 pg/mL (7.2-63.3)
[2024-07-10] MEDS ORDERED: MEROPENEM 500 MG/VIAL VIAL IV ONE (12:49)
[2024-07-10] MEDS ORDERED: DILTIAZEM HCL 125MG/25ML VIAL IV ONE (14:12)
[2024-07-10] MEDS ORDERED: DILTIAZEM HCL 125 MG in 0.9 % SODIUM CHLORIDE 125 ML IV SCH (14:15)
[2024-07-10] MEDS ORDERED: FENTANYL CITRATE IV SCH (17:00)
[2024-07-10] MEDS ORDERED: WATER IV SCH (17:00)
[2024-07-10] MEDS ORDERED: DEXTROSE 5% IV SCH (17:00)
[2024-07-11] VITALS (22 sets, daily range): BP systolic 90–141; BP diastolic 52–92; O2SAT 97–100
[2024-07-11 07:18] LABS: ALBUMIN 2.4 gm/dL (3.4-5.0); BILIRUBIN TOTAL 0.94 mg/dL (0.3-1.2); CALCIUM 8.5 mg/dL (8.5-10.1); CREATININE SERUM 1.23 mg/dL (0.55-1.02); GFR 48.86; GLOBULINA 2.9 G/DL (2.4-3.5); POTASSIUM 3.34 mEq/L (3.5-5.1); TOTAL PROTEIN 5.3 gm/dL (6.4-8.2)
[2024-07-11 10:19] LABS: ABG PH 7.438 (7.35-7.45); ABG PO2 60.2 mmHg (80-100); ABG pCO2 51.7 mmHg (35-45); BASE EXCESS 8.2 mmol/l; BICARBONATE 34.1 mmol/l (23-25); SaO2 92.2 %; Tco2 35.7 mmol/l
[2024-07-11 10:20] LABS: allen test SATISFACTORY; o2 70 %; puncture site RADIAL RIGHT
[2024-07-11 11:35] LABS: HEMATOCRIT 32.6 % (36.0-45.00); MEAN CELL VOLUME 89.5 fL (80.00-100.00); MEAN CORPUSCULAR HEMOGLOBIN 30.1 pg (27.00-32.0); MEAN CORPUSCULAR HGB CONC 33.6 g/dl (32.0-36.0); RED BLOOD COUNT 3.64 M/uL (4.00-6.00); RED CELL DISTRIBUTION WIDTH 16.4 % (11.5-14.5)
[2024-07-11 11:37] LABS: PLATELET COUNT 46 K/uL (150-450)
[2024-07-11] MEDS ORDERED: AA 5 %/CALCIUM/LYTES/DEXT 20 % 2,000 ML CENTRAL SCH (17:00)
[2024-07-11] MEDS ORDERED: MAGNESIUM SULFATE IN WATER 50 ML IV NR (19:00)
[2024-07-11] MEDS ORDERED: POTASSIUM CHLORIDE IN WATER 40 MEQ/100 ML PIGGYBAG IV SCH (19:06)
[2024-07-11] MEDS ORDERED: DILTIAZEM HCL 125MG/25ML VIAL IV ONE (21:48)
[2024-07-11] MEDS ORDERED: MEROPENEM 500 MG/VIAL VIAL IV ONE (23:35)
[2024-07-12] VITALS (24 sets, daily range): BP systolic 101–147; BP diastolic 57–85; O2SAT 96–100
[2024-07-12 08:39] LABS: ABG PH 7.443 (7.35-7.45); ABG PO2 67.4 mmHg (80-100); ABG pCO2 50.1 mmHg (35-45); BASE EXCESS 7.8 mmol/l; BICARBONATE 33.5 mmol/l (23-25); SaO2 94.3 %
[2024-07-12 08:45] LABS: allen test SATISFACTORY; o2 70 %; puncture site RADIAL RIGHT
[2024-07-12 11:13] LABS: CALCIUM 8.3 mg/dL (8.5-10.1); CREATININE SERUM 0.78 mg/dL (0.55-1.02); GFR 82.65; POTASSIUM 3.89 mEq/L (3.5-5.1)
[2024-07-12] MEDS ORDERED: DILTIAZEM HCL 125MG/25ML VIAL IV ONE (20:27)
[2024-07-13] VITALS (18 sets, daily range): BP systolic 107–127; BP diastolic 64–89; O2SAT 93–100
[2024-07-13] MEDS ORDERED: PANTOPRAZOLE SODIUM 40 MG/VIAL VIAL ONE (01:12)
[2024-07-13 08:20] LABS: ABG PH 7.452 (7.35-7.45); ABG pCO2 50.3 mmHg (35-45); BASE EXCESS 8.7 mmol/l; BICARBONATE 34.3 mmol/l (23-25); Tco2 35.9 mmol/l
[2024-07-13] MEDS ORDERED: MEROPENEM 500 MG/VIAL VIAL IV ONE (11:20)
[2024-07-13 12:42] LABS: ABG PO2 47.2 mmHg (80-100); allen test SATISFACTORY; o2 70 %; puncture site RADIAL LEFT
[2024-07-13] MEDS ORDERED: DILTIAZEM HCL 125MG/25ML VIAL IV ONE (21:12)
[2024-07-13] MEDS ORDERED: SODIUM CHLORIDE 0.45 % 1,000 ML IV SCH (22:45)
[2024-07-14] VITALS (14 sets, daily range): BP systolic 100–127; BP diastolic 59–81; O2SAT 100
[2024-07-14 08:11] LABS: MEAN CELL VOLUME 90.8 fL (80.00-100.00); MEAN CORPUSCULAR HGB CONC 33.1 g/dl (32.0-36.0); RED BLOOD COUNT 2.86 M/uL (4.00-6.00); RED CELL DISTRIBUTION WIDTH 16.5 % (11.5-14.5)
[2024-07-14 08:22] LABS: D DIMER 12.74 MG/L
[2024-07-14 08:52] LABS: HEMOGLOBIN 8.6 g/dL (12.0-15.00)
[2024-07-14 08:59] LABS: PLATELET COUNT 27 K/uL (150-450)
[2024-07-14] MEDS ORDERED: FUROsemide 20 MG/2 ML VIAL IV SCH (09:45)
[2024-07-14 11:55] LABS: ABG PH 7.427 (7.35-7.45); ABG PO2 151.8 mmHg (80-100); BASE EXCESS 5.5 mmol/l; BICARBONATE 30.9 mmol/l (23-25); SaO2 99.4 %; Tco2 32.4 mmol/l
[2024-07-14 15:35] LABS: allen test SATISFACTORY; o2 100 %; puncture site RADIAL LEFT
[2024-07-14 16:02] LABS: URINE APPEARANCE Clear; URINE BILIRRUBIN Negative (NEGATIVE); URINE BLOOD Large; URINE COLOR Dark Yellow; URINE GLUCOSE Negative (NEGATIVE); URINE KETONE Negative (NEGATIVE); URINE LEUKOCYTE Small; URINE NITRATE Negative; URINE PROTEIN 30 (NEGATIVE); URINE UROBILINOGEN 0.2 E.U./dl
[2024-07-14 16:06] LABS: URINE BACTERIA 60.4 uL (0.0-1933); URINE EPITHELIAL CELLS 7.5 uL (0.0-38.8); URINE RBC 2007.4 uL (0.0-20.8); URINE WBC 99.6 uL (0.0-23.2)
[2024-07-14 16:16] LABS: URINE CAST 0.45 uL (0.0-1.40)
[2024-07-14] MEDS ORDERED: SILVER SULFADIAZINE 50 GM,NYSTATIN 30 GM,ZINC OXIDE 30 GM TOP SCH (17:00)
[2024-07-14] MEDS ORDERED: FLUCONAZOLE IN NACL,ISO-OSM 400 MG/200 ML PIGGYBAG IV ONE (17:15)
[2024-07-14] MEDS ORDERED: MEROPENEM 500 MG/VIAL VIAL IV SCH (18:00)
[2024-07-14] MEDS ORDERED: DILTIAZEM HCL 125MG/25ML VIAL IV ONE (18:57)
[2024-07-15] VITALS (19 sets, daily range): BP systolic 94–132; BP diastolic 40–82; O2SAT 94–100
[2024-07-15 07:44] LABS: HEMATOCRIT 36.7 % (36.0-45.00); HEMOGLOBIN 12.1 g/dL (12.0-15.00); MEAN CELL VOLUME 90.1 fL (80.00-100.00); MEAN CORPUSCULAR HEMOGLOBIN 29.8 pg (27.00-32.0); MEAN CORPUSCULAR HGB CONC 33.1 g/dl (32.0-36.0); RED BLOOD COUNT 4.07 M/uL (4.00-6.00); RED CELL DISTRIBUTION WIDTH 16.3 % (11.5-14.5)
[2024-07-15 08:00] LABS: INR 1.16; PARTIAL THROMBOPLASTIN TIME 35.1 SECONDS (22.0-34.0); PROTHROMBIN TIME 12.5 SECONDS (9.0-11.5)
[2024-07-15 08:07] LABS: ALBUMIN 2.1 gm/dL (3.4-5.0); BILIRUBIN TOTAL 1.42 mg/dL (0.3-1.2); BILIRUBIN,CONJUGATED 0.62 mg/dL (0.0-0.2); BILIRUBIN,UNCONJUGATED 0.8 mg/dL (0.0-0.6); CALCIUM 8.4 mg/dL (8.5-10.1); CREATININE SERUM 0.66 mg/dL (0.55-1.02); GFR 100.23; PHOSPHOROUS 3.5 mg/dL (2.5-4.9); POTASSIUM 4.82 mEq/L (3.5-5.1); TOTAL PROTEIN 6.1 gm/dL (6.4-8.2)
[2024-07-15 08:10] LABS: ABG PH 7.344 (7.35-7.45); ABG PO2 82.8 mmHg (80-100); ABG pCO2 50.9 mmHg (35-45); BASE EXCESS 0.6 mmol/l; BICARBONATE 27.1 mmol/l (23-25); SaO2 95.4 %; Tco2 28.7 mmol/l
[2024-07-15 08:19] LABS: PLATELET COUNT 21 K/uL (150-450)
[2024-07-15] MEDS ORDERED: FLUCONAZOLE IN NACL,ISO-OSM 200 ML IV SCH (09:00)
[2024-07-15 09:14] LABS: UREA CLEARANCE 36.3 ML/MIN
[2024-07-15 12:43] LABS: o2 100 %
[2024-07-15 12:44] LABS: allen test SATISFACTORY; puncture site RADIAL RIGHT
[2024-07-15] MEDS ORDERED: DILTIAZEM HCL 125MG/25ML VIAL IV ONE (13:02)
[2024-07-15 16:03] LABS: HEMATOCRIT 32.5 % (36.0-45.00); HEMOGLOBIN 10.6 g/dL (12.0-15.00); MEAN CELL VOLUME 91.7 fL (80.00-100.00); MEAN CORPUSCULAR HGB CONC 32.8 g/dl (32.0-36.0); RED BLOOD COUNT 3.54 M/uL (4.00-6.00); RED CELL DISTRIBUTION WIDTH 16.3 % (11.5-14.5)
[2024-07-15 16:33] LABS: PLATELET COUNT 25 K/uL (150-450)
[2024-07-16] VITALS (22 sets, daily range): BP systolic 72–109; BP diastolic 19–71; O2SAT 58–98
[2024-07-16 08:21] LABS: ABG PH 7.281 (7.35-7.45); ABG PO2 72.7 mmHg (80-100); ABG pCO2 50.8 mmHg (35-45); BASE EXCESS -3.9 mmol/l; BICARBONATE 23.4 mmol/l (23-25); SaO2 91.7 %; Tco2 24.9 mmol/l
[2024-07-16 08:28] LABS: allen test SATISFACTORY; o2 100 %; puncture site RADIAL RIGHT
[2024-07-16] MEDS ORDERED: 0.9 % SODIUM CHLORIDE 500 ML IV ONE ×2 (11:30→17:45)
[2024-07-16] MEDS ORDERED: HEPARIN SODIUM,PORCINE 5,000 UNITS/ML VIAL ONE (11:39)
[2024-07-16 12:47] LABS: HEMATOCRIT 28.5 % (36.0-45.00); MEAN CELL VOLUME 93.3 fL (80.00-100.00); MEAN CORPUSCULAR HGB CONC 32.5 g/dl (32.0-36.0); RED BLOOD COUNT 3.05 M/uL (4.00-6.00); RED CELL DISTRIBUTION WIDTH 16.6 % (11.5-14.5)
[2024-07-16 12:49] LABS: HEMOGLOBIN 9.3 g/dL (12.0-15.00); MEAN CORPUSCULAR HEMOGLOBIN 30.4 pg (27.00-32.0)
[2024-07-16 13:22] LABS: PLATELET COUNT 13 K/uL (150-450)
[2024-07-16] MEDS ORDERED: NOREPINEPHRINE BITARTRATE 8 MG in DEXTROSE 5 % IN WATER 250 ML IV SCH (13:45)
[2024-07-16 14:34] LABS: ALBUMIN 1.7 gm/dL (3.4-5.0); BILIRUBIN TOTAL 0.78 mg/dL (0.3-1.2); CALCIUM 8.1 mg/dL (8.5-10.1); CREATININE SERUM 0.95 mg/dL (0.55-1.02); GFR 65.83; GLOBULINA 3.3 G/DL (2.4-3.5); MAGNESIUM 2.3 mg/dL (1.8-2.4); PHOSPHOROUS 4.8 mg/dL (2.5-4.9); POTASSIUM 5.2 mEq/L (3.5-5.1)
[2024-07-16] MEDS ORDERED: EPINEPHRINE HCL/PF 1 MG/ML AMPUL ONE (18:42)
[2024-07-16] MEDS ORDERED: EPINEPHRINE HCL/PF 4 MG in DEXTROSE 5 % IN WATER 250 ML IV SCH (18:45)
[2024-07-16] MEDS ORDERED: VANCOMYCIN HCL 5 MG/ML REDILUIDO IV SCH (21:00)
[2024-07-16 21:28] LABS: HEMATOCRIT 32.3 % (36.0-45.00); HEMOGLOBIN 10.1 g/dL (12.0-15.00); MEAN CELL VOLUME 96.5 fL (80.00-100.00); MEAN CORPUSCULAR HEMOGLOBIN 30.3 pg (27.00-32.0); MEAN CORPUSCULAR HGB CONC 31.4 g/dl (32.0-36.0); RED BLOOD COUNT 3.35 M/uL (4.00-6.00); RED CELL DISTRIBUTION WIDTH 17.4 % (11.5-14.5)
[2024-07-16 21:32] LABS: PLATELET COUNT 91 K/uL (150-450)
[2024-07-17] MEDS ORDERED: HYDROCORTISONE SODIUM SUCC IV SCH (05:15)
[2024-07-17] MEDS ORDERED: WATER IV SCH (05:15)
[2024-07-17] MEDS ORDERED: DEXTROSE 5% IV SCH (05:15)
[2024-07-17 15:06] LABS: ALDOSTERONE SERUM < 1.0 ng/dL (0.0-30.0)
== END 2024-07-16 23:30 | disposition expired | DRG 329 ==
LOC: ER 06:17 → ICU 08:15 → SURH 08:15 → SEC-K 08:15 → O/R 08:15 → SURG 06-20 17:01 → SURH 06-25 08:50 → ICU 06-29 00:53
PROVIDERS: Colon & Rectal Surgery; General Practice; Internal Medicine; Internal Medicine Hematology & Oncology; Internal Medicine Infectious Disease; Internal Medicine Nephrology; Surgery; ADMIT Internal Medicine; ATTEND Internal Medicine
PROC: BW21YZZ Computerized Tomography (CT Scan) of Abdomen and Pelvis using Other Contrast (ICD-10-PCS; 2024-06-19)
PROC: 0D1L4Z4 Bypass Transverse Colon to Cutaneous, Percutaneous Endoscopic Approach (ICD-10-PCS; principal; 2024-06-20 15:30)
PROC: B54CZZZ Ultrasonography of Left Lower Extremity Veins (ICD-10-PCS; 2024-06-23)
PROC: BT43ZZZ Ultrasonography of Bilateral Kidneys (ICD-10-PCS; 2024-06-24)
PROC: 0T788DZ Dilation of Bilateral Ureters with Intraluminal Device, Via Natural or Artificial Opening Endoscopic (ICD-10-PCS; 2024-06-27)
PROC: 5A12012 Performance of Cardiac Output, Single, Manual (ICD-10-PCS; 2024-06-28)
PROC: 4A12X4Z Monitoring of Cardiac Electrical Activity, External Approach (ICD-10-PCS; 2024-06-28)
PROC: 0BH17EZ Insertion of Endotracheal Airway into Trachea, Via Natural or Artificial Opening (ICD-10-PCS; 2024-06-29)
PROC: 30233N1 Transfusion of Nonautologous Red Blood Cells into Peripheral Vein, Percutaneous Approach (ICD-10-PCS; 2024-06-29)
PROC: 5A1955Z Respiratory Ventilation, Greater than 96 Consecutive Hours (ICD-10-PCS; 2024-06-29)
PROC: 06HM33Z Insertion of Infusion Device into Right Femoral Vein, Percutaneous Approach (ICD-10-PCS; 2024-06-30)
PROC: BW21ZZZ Computerized Tomography (CT Scan) of Abdomen and Pelvis (ICD-10-PCS; 2024-07-01)
PROC: B246ZZZ Ultrasonography of Right and Left Heart (ICD-10-PCS; 2024-07-01)
PROC: 30233R1 Transfusion of Nonautologous Platelets into Peripheral Vein, Percutaneous Approach (ICD-10-PCS; 2024-07-01)
PROC: 3E0336Z Introduction of Nutritional Substance into Peripheral Vein, Percutaneous Approach (ICD-10-PCS; 2024-07-01)
PROC: 02HV33Z Insertion of Infusion Device into Superior Vena Cava, Percutaneous Approach (ICD-10-PCS; 2024-07-02)
PROC: 3E0436Z Introduction of Nutritional Substance into Central Vein, Percutaneous Approach (ICD-10-PCS; 2024-07-02)
PROC: 0D9670Z Drainage of Stomach with Drainage Device, Via Natural or Artificial Opening (ICD-10-PCS; 2024-07-06)
PROC: 30233M1 Transfusion of Nonautologous Plasma Cryoprecipitate into Peripheral Vein, Percutaneous Approach (ICD-10-PCS; 2024-07-06)
DX: C78.5 Secondary malignant neoplasm of large intestine and rectum (principal); A41.51 Sepsis due to Escherichia coli [E. coli]; J96.01 Acute respiratory failure with hypoxia; R65.21 Severe sepsis with septic shock; T81.19XA Other postprocedural shock, initial encounter; D65 Disseminated intravascular coagulation [defibrination syndrome]; J18.9 Pneumonia, unspecified organism; K56.601 Complete intestinal obstruction, unspecified as to cause; T81.44XA Sepsis following a procedure, initial encounter; C78.01 Secondary malignant neoplasm of right lung; C78.02 Secondary malignant neoplasm of left lung; C79.11 Secondary malignant neoplasm of bladder; C78.7 Secondary malignant neoplasm of liver and intrahepatic bile duct; C78.6 Secondary malignant neoplasm of retroperitoneum and peritoneum; C56.9 Malignant neoplasm of unspecified ovary; N13.1 Hydronephrosis with ureteral stricture, not elsewhere classified; E87.0 Hyperosmolality and hypernatremia; N17.9 Acute kidney failure, unspecified; I47.19 Other supraventricular tachycardia; E87.21 Acute metabolic acidosis; D62 Acute posthemorrhagic anemia; J90 Pleural effusion, not elsewhere classified; E27.3 Drug-induced adrenocortical insufficiency; K92.2 Gastrointestinal hemorrhage, unspecified; J81.1 Chronic pulmonary edema; I82.422 Acute embolism and thrombosis of left iliac vein; I82.412 Acute embolism and thrombosis of left femoral vein; N30.11 Interstitial cystitis (chronic) with hematuria; D89.839 Cytokine release syndrome, grade unspecified; E87.6 Hypokalemia; E03.9 Hypothyroidism, unspecified; Z92.21 Personal history of antineoplastic chemotherapy; Y95 Nosocomial condition; Z66 Do not resuscitate